=== PATIENT | male | born 1990 | race Two or more races ===

== ENCOUNTER 2017-06-02 13:23 | Emergency (ER) | payer OTHER ==
[~2017-06-02] VITALS: Wt 83.5 kg
--- NOTE | 2017-06-02 14:25 | RADRPT ---
PROCEDURE: XR Chest. CLINICAL INDICATION: chest pain, shortness of breath TECHNIQUE: Single frontal view of the chest was obtained COMPARISON: None FINDINGS: The heart and mediastinum are within normal limits. The lungs are clear. There is no pleural effusion or pneumothorax. RPTAT: AA IMPRESSION: No acute disease. .Rishi Rose MD, MD Date Time Electronically viewed and signed by .Rishi Rose MD, on 06/02/2017 14:25 .S/
[2017-06-02 14:53] LABS: ADD SCAN DIFF NO
[2017-06-02 14:59] LABS: HEMATOCRIT 42.2 % (42.0-52.0); HEMOGLOBIN 13.2 g/dl (14.0-18.0); MEAN CORPUSCULAR HEMOGLOBIN 20.4 pg (29.0-33.0); MEAN CORPUSCULAR HGB CONC 31.3 g/dl (32.0-37.0); MEAN CORPUSCULAR VOLUME 65.1 fl (82.0-101.0); RED BLOOD COUNT 6.48 10^6/ul (4.70-6.10); RED CELL DISTRIBUTION WIDTH 17.4 % (11.5-14.5)
[2017-06-02 15:00] LABS: ABNORMAL IP MESSAGE 1; BASOPHIL # 0.1 10^3/ul (0.0-0.1); BASOPHILS % 1.5 % (0.0-2.0); EOSINOPHILS # 0.1 10^3/ul (0.0-0.5); EOSINOPHILS % 2.5 % (0.0-7.0); LYMPHOCYTES % 49.4 % (15.0-51.0); MONOCYTE # 0.5 10^3/ul (0.3-0.9); MONOCYTES % 12.8 % (0.0-11.0); NEUTROPHIL # 1.3 10^3/ul (1.6-7.5); NEUTROPHILS % 33.5 % (39.0-77.0); PLATELET COUNT 325 10^3/UL (140-415)
[2017-06-02 15:18] LABS: ALBUMIN 5.4 g/dl (3.3-4.9); ALBUMIN/GLOBULIN RATIO 1.63; BILIRUBIN,INDIRECT 0.2 mg/dl (0-1.1); BILIRUBIN,TOTAL 0.2 mg/dl (0.2-1.3); CALCIUM 10.1 mg/dl (8.4-10.2); CREATININE 0.65 mg/dl (0.61-1.24); POTASSIUM 4.8 mmol/L (3.5-5.1); TOTAL PROTEIN 8.7 g/dl (6.1-8.1)
[2017-06-02] MEDS ORDERED: LORA-441 PO (15:31)
--- NOTE | 2017-06-02 15:38 | ERD ---
ER Documentation Chief Complaint Date/Time DATE: 06/02/17 TIME: 15:31 Chief Complaint "CAN'T CATCH MY BREATH" STARTED 10 MIN AGO, CLEAR LUNGSOUND, 100% ORA HPI This 26-year-old female awoke this morning with a sensation of inability to take a deep breath. He has had this intermittently throughout the day. Patient denies any recent illnesses, chest pain, vomiting, pain. Denies any leg swelling, additional symptoms. ROS All systems reviewed and are negative except as per history of present illness. Medications Home Meds Active Scripts Lorazepam* (Ativan*) 0.5 Mg Tablet, 0.5 MG PO Q8, #10 TAB Prov:OREN ALMENDAREZ MD 06/02/17 PMhx/Soc History of Surgery: Yes (BRAIN TUMOR) Anesthesia Reaction: No Hx Neurological Disorder: No Hx Respiratory Disorders: No Hx Cardiac Disorders: No Hx Psychiatric Problems: No Hx Miscellaneous Medical Probl: No Hx Alcohol Use: No Hx Substance Use: No Hx Tobacco Use: No Smoking Status: Never smoker Physical Exam Vitals Vital Signs Date Time Temp Pulse Resp B/P Pulse Ox O2 Delivery O2 Flow Rate FiO2 06/02/17 13:26 96.7 71 26 112/67 100 Physical Exam Const: [] Alert, [id number]. Head: Atraumatic Eyes: Normal Conjunctiva ENT: Normal External Ears, Nose and Mouth. Neck: Full range of motion..~ No meningismus. Resp: Clear to auscultation bilaterally Cardio: Regular rate and rhythm, no murmurs Abd: Soft, non tender, non distended. Normal bowel sounds Skin: No petechiae or rashes Back: No midline or flank tenderness Ext: No cyanosis, or edema Neur: Awake and alert Psych: Normal Mood and Affect Result Diagram: 06/02/17 1450 06/02/17 1450 Results 24 hrs Laboratory Tests Test 06/02/17 14:50 White Blood Count 4.010^3/ul Red Blood Count 6.4810^6/ul Hemoglobin 13.2g/dl Hematocrit 42.2% Mean Corpuscular Volume 65.1fl Mean Corpuscular Hemoglobin 20.4pg Mean Corpuscular Hemoglobin Concent 31.3g/dl Red Cell Distribution Width 17.4% Platelet Count 87330^3/UL Mean Platelet Volume fl Neutrophils % 33.5% Lymphocytes % 49.4% Monocytes % 12.8% Eosinophils % 2.5% Basophils % 1.5% Nucleated Red Blood Cells % 0.0/100WBC Neutrophils # 1.310^3/ul Lymphocytes # 2.010^3/ul Monocytes # 0.510^3/ul Eosinophils # 0.110^3/ul Basophils # 0.110^3/ul Nucleated Red Blood Cells # 0.010^3/ul Sodium Level 135mmol/L Potassium Level 4.8mmol/L Chloride Level 90mmol/L Carbon Dioxide Level 28mmol/L Anion Gap 22 Blood Urea Nitrogen 4mg/dl Creatinine 0.65mg/dl Glucose Level 93mg/dl Calcium Level 10.1mg/dl Total Bilirubin 0.2mg/dl Direct Bilirubin 0.00mg/dl Indirect Bilirubin 0.2mg/dl Aspartate Amino Transf (AST/SGOT) 22IU/L Alanine Aminotransferase (ALT/SGPT) 33IU/L Alkaline Phosphatase 110IU/L Total Protein 8.7g/dl Albumin 5.4g/dl Globulin 3.30g/dl Albumin/Globulin Ratio 1.63 Procedures/MDM EKG: Rate/Rhythm: [Normal Sinus Rhythm] rate equals 80 QRS, ST, T-waves: [No changes consistent w/ acute ischemia] Impression: [No evidence of ischemia or arrhythmia]. Impression-normal EKG. Chest X-ray 1V Interpreted by me: Soft Tissue: No acute abnormalities Bones: No acute abnormalities Mediastinum/Cardiac Silhouette/Lungs: [No acute abnormalities]. Impression have normal 1 view chest x-ray CBC and CMP shows no acute abnormalities. Patient presents with sensation of air hunger rinse etiology which is intermittent. Current signs and symptoms do not suggest acute coronary syndrome, hemothorax, Pneumovax, pneumonia, hypoxemia , pulmonary embolism, additional causes of presenting complaints. Patient was discharged home with a short course of Ativan and further observation. Patient is advised to follow-up with primary doctor this week return to the ER for new or worsening symptoms. The child was stable with no new complaints during the ER course. Clinically there is currently no evidence to suggest meningitis, sepsis, acute abdomen or appendicitis, pneumonia, or any other emergent condition that appears to require further evaluation or hospitalization. The child will be sent home with the parents with instructions to return for any new or worsening symptoms per the aftercare instructions. They should otherwise follow up with her primary care doctor this week. Departure Diagnosis: Primary Impression: Shortness of breath Condition: Stable Patient Instructions: Coping with Shortness of Breath: Controlling Stress Additional Instructions: All examinations normal today. Uncertain cause of symptoms. Follow-up with primary doctor or return to the ER for new or worsening symptoms OREN ALMENDAREZ MD Jun 02, 2017 15:38
== END 2017-06-02 15:47 | disposition home or self-care (01) ==
LOC: FTE 13:23
DX: R06.02 Shortness of breath (principal)
CPT/HCPCS: 71010; 80053; 85025; 93005; Z7502

== ENCOUNTER 2017-12-01 12:55 | Emergency (ER) | END 2017-12-01 13:32 | disposition home or self-care (01) ==

== ENCOUNTER 2018-03-11 12:26 | Emergency (ER) | END 2018-03-11 13:05 | disposition home or self-care (01) ==